=== PATIENT | male | born 1990 | race American Indian/Alaskan Native ===

== ENCOUNTER 2017-12-22 04:19 | Emergency (ER) | payer OTHER ==
[2017-12-22 04:45] VITALS: BP 108/70
[2017-12-22] MEDS ORDERED: ZITHROMAX PO ONE (05:06)
[2017-12-22] MEDS ORDERED: ROCEPHIN IM ONE (05:07)
--- NOTE | 2017-12-22 05:10 | Emergency Department Report ---
ED Male HPI - General Chief complaint: Urogenital-Male Stated complaint: PENILE D/C Time Seen by Provider: 12/22/17 05:05 Source: patient Mode of arrival: Ambulatory Limitations: No Limitations - History of Present Illness Initial comments: 27-year-old male presents to the ED with complaint of exposure to chlamydia. Patient states that his sex partner informed him that she exposed him to chlamydia this week. Patient states that he went to [facility] and was informed that his chlamydia test was positive. Complains of slight penile discharge and dysuria for one and a half weeks. Denies any testicular pain and swelling penile pain or any genitourinary lesions otherwise. Patient has had chlamydia infections in the past. Awake alert and oriented 3 nontoxic appearing. MD Complaint: penile discharge, dysuria Onset/Timin -: week(s) Quality: burning Worsens with: urination new sexual partner discharge - Related Data Sexually active: Yes Allergies Allergy/AdvReac Type Severity Reaction Status Date / Time No Known Allergies Allergy Unverified 12/22/17 04:44 ED Review of Systems ROS: Stated complaint: PENILE D/C Other details as noted in HPI Constitutional: denies: chills, fever Eyes: denies: eye pain, eye discharge, vision change ENT: denies: ear pain, throat pain Respiratory: denies: cough, shortness of breath, wheezing Cardiovascular: denies: chest pain, palpitations Endocrine: no symptoms reported Gastrointestinal: denies: abdominal pain, nausea, diarrhea Genitourinary: discharge. denies: urgency, dysuria Musculoskeletal: denies: back pain, joint swelling, arthralgia Skin: denies: rash, lesions Neurological: denies: headache, weakness, paresthesias Psychiatric: denies: anxiety, depression Hematological/Lymphatic: denies: easy bleeding, easy bruising ED Past Medical Hx - Past Medical History Previous Medical History?: No - Surgical History Past Surgical History?: No - Social History Smoking Status: Never Smoker Substance Use Type: None ED Physical Exam - General Limitations: No Limitations General appearance: alert, in no apparent distress - Head Head exam: Present: atraumatic, normocephalic - Eye Eye exam: Present: normal appearance - ENT ENT exam: Present: mucous membranes moist - Neck Neck exam: Present: normal inspection - Respiratory Respiratory exam: Present: normal lung sounds bilaterally. Absent: respiratory distress - Cardiovascular Cardiovascular Exam: Present: regular rate, normal rhythm. Absent: systolic murmur, diastolic murmur, rubs, gallop - GI/Abdominal GI/Abdominal exam: Present: soft, normal bowel sounds - Rectal Rectal exam: Present: deferred - exam: Present: urethral discharge - Extremities Exam Extremities exam: Present: normal inspection - Back Exam Back exam: Present: normal inspection - Neurological Exam Neurological exam: Present: alert, oriented X3 - Psychiatric Psychiatric exam: Present: normal affect, normal mood - Skin Skin exam: Present: warm, dry, intact, normal color. Absent: rash ED Course Vital Signs 12/22/17 04:42 Temperature 98.4 F Pulse Rate 75 Respiratory 17 Rate Blood Pressure 108/70 O2 Sat by Pulse 100 Oximetry ED Medical Decision Making - Medical Decision Making A/P: Urethritis 1-patient empirically treated with azithromycin and ceftriaxone 2-patient states that his sex partner informed him that she tested positive for Chlamydia gonorrhea there is no need for repeat testing. I will treat patient empirically based on exposure. Patient does say that he received a notification from [facility] that his chlamydia test was +1 week ago. This was sent by Critical care attestation.: If time is entered above; I have spent that time in minutes in the direct care of this critically ill patient, excluding procedure time. ED Disposition Clinical Impression: Positive Chlamyida test, Exposure to STD Disposition: DC-01 TO HOME OR SELFCARE Is pt being admited?: No Does the pt Need Aspirin: No Condition: Stable Instructions: Chlamydia Infection (ED) Referrals: [facility] [Provider Group] - 3-5 Days Time of Disposition: 05:10
== END 2017-12-22 05:40 | disposition home or self-care (01) ==
LOC: ED 04:19
DX: A74.9 Chlamydial infection, unspecified (principal)
CPT/HCPCS: 96372; 99282; J0696